=== PATIENT | male | born 1945 | race Caucasian/White ===

== ENCOUNTER → 2017-04-05 | Outpatient (CLI) | payer MEDICARE, OTHER ==
[2016-01-08 11:11] VITALS: BP 130/67
[~2017-04-05] MED LIST: ASPI-630 PO; ATOR20TA58 PO; BYSTOLIC10 MG PO; CHOL500016 PO; FERR159T3 PO; GLIM4TAB2 PO; INSU100V13 SQ; LIRA0.6P2 SQ; LISI-334 PO; LISI1TAB5 PO; LOSA1TAB17 PO; POTA99TA10 PO; TRAM50TA PO
[2017-04-05 09:37] LABS: BASO # 0.1 x10^3/uL (0.0-0.2); BASO % 1 % (0-3); EOS % 3 % (0-3); HEMATOCRIT 43.7 % (39.0-53.0); HEMOGLOBIN 15.3 g/dL (13.0-17.5); LYMPH # 1.2 x10^3/uL (1.0-4.8); LYMPH % 12 % (24-48); MEAN CORPUSCULAR HEMOGLOBIN 32 pg (25-35); MEAN CORPUSCULAR HGB CONC 35 g/dL (31-37); MEAN CORPUSCULAR VOLUME 91 fL (79-100); MONO % 11 % (0-9); NEUT % 74 % (31-73); PLATELET COUNT 248 x10^3/uL (140-400); RED BLOOD COUNT 4.79 x10^6/uL (4.30-5.70); WHITE BLOOD COUNT 10.1 x10^3/uL (4.0-11.0)
[2017-04-05 09:53] LABS: ALBUMIN 3.7 g/dL (3.4-5.0); CALCIUM 9.6 mg/dL (8.5-10.1); CREATININE 1.5 mg/dL (0.7-1.3)
[2017-04-05 09:55] LABS: INR 1.1 (0.8-1.1); PROTHROMBIN TIME PATIENT 13.3 SEC (11.7-14.0)
--- NOTE | 2017-04-05 14:59 | RAD ---
PA and lateral chest radiographs 04/05/2017 Clinical history: Preop evaluation prior to right knee surgery. PA and lateral digital radiographs of the chest were obtained. Comparison study is dated 01/05/2016. The cardiac silhouette is mildly enlarged. The thoracic aorta is mildly tortuous. No acute pulmonary infiltrate is seen. No pleural effusion or pneumothorax is noted. Degenerative changes are seen involving the thoracic spine. Impression: No acute abnormality is seen.
[2017-04-05 16:17] LABS: BILIRUBIN,URINE NEGATIVE (NEG); GLUCOSE,URINE 250 mg/dL (NEG); NITRITE,URINE NEGATIVE (NEG); PROTEIN,URINE NEGATIVE (NEG-TRACE); UROBILINOGEN,URINE 0.2 mg/dL (0.2 mg/dL)
[2017-04-05 16:27] LABS: BACTERIA,URINE 0 /HPF (0-FEW); RBC,URINE 0 /HPF (0-2); SQUAMOUS EPITHELIAL CELL,UR FEW /LPF
== END | disposition home or self-care (01) ==
LOC: SURGPAT 13:24
PROVIDERS: ATTEND Orthopaedic Surgery
DX: Z01.818 Encounter for other preprocedural examination (principal); I51.7 Cardiomegaly; Q25.46 Tortuous aortic arch; M47.894 Other spondylosis, thoracic region
CPT/HCPCS: 71020; 80048; 81001; 82040; 85027; 85610; 85651; 85730; 87641

== ENCOUNTER → 2017-04-22 | Outpatient (CLI) | payer MEDICARE, OTHER ==
[2016-01-08 11:11] VITALS: BP 130/67
[~2017-04-22] MED LIST changes: +REGADENOSON 0.4 MG/5 ML DISP.SYRIN. IV ONE
--- NOTE | 2017-04-22 10:36 | CARD ---
APPROVED REPORT EXAM: Two-dimensional and M-mode echocardiogram with Doppler and color Doppler. Other Information Quality : GoodHR: 71bpm INDICATION Pre-Op RISK FACTORS Hypertension Obesity Hyperlipidemia Diabetes 2D DIMENSIONS RVDd3.3 (2.9-3.5cm)Left Atrium(2D)4.1 (1.6-4.0cm) IVSd0.9 (0.7-1.1cm)Aortic Root(2D)3.2 (2.0-3.7cm) LVDd4.6 (3.9-5.9cm)LVOT Diameter2.4 (1.8-2.4cm) PWd0.8 (0.7-1.1cm)LVDs3.1 (2.5-4.0cm) FS (%) 34.1 %SV62.7 ml LVEF(%)63.0 (>50%) Aortic Valve AoV Peak Scooby.257.4cm/sAoV VTI56.4cm AO Peak GR.26.5mmHgLVOT Peak Scooby.87.5cm/s AO Mean GR.13mmHgAVA (VMAX)1.54cm2 AI P 1/2 Coxl238ui Mitral Valve MV E Dpfwdiqd78.7cm/sMV E Peak Gr.2mmHg MV DECEL [id number] A Ewofsqdp94.3cm/s MV E Mean Gr.1mmHgE/A Ratio1.0 MV A [id number] Pulmonary Valve PV Peak Emmmvtpj80.7cm/s Pulmonary Vein S1 Ttpnrtfx03.7cm/sD2 Riqcztpv84.5cm/s PVa [id number] LEFT VENTRICLE The left ventricle is normal size. There is normal left ventricular wall thickness. The left ventricu lar systolic function is normal and the ejection fraction is within normal range. The Ejection Fracti on is 65%. There is normal LV segmental wall motion. Tissue Doppler imaging reveals mild left ventric ular diastolic dysfunction. RIGHT VENTRICLE The right ventricle is normal size. There is normal right ventricular wall thickness. The right ventr icular systolic function is normal. ATRIA The left atrium is mildly dilated. The right atrium size is normal. The interatrial septum is intact with no evidence for an atrial septal defect or patent foramen ovale as noted on 2-D or Doppler imagi ng. AORTIC VALVE The aortic valve is moderately sclerotic. Not well visualized. Decreased leaflet motion. Doppler and Color Flow revealed mild aortic regurgitation. There is mild valvular aortic stenosis by calculated a ortic valve area is 1.6 cm2 with maximum pressure gradient of 27 mmHg and mean pressure gradient of 1 4 mmHg. Visually, there appears to be moderate aortic stenosis due to significant valve calcification . MITRAL VALVE Mitral annular calcification is mild. The mitral valve leaflets are thickened. There is no evidence o f mitral valve prolapse. There is no mitral valve stenosis. Doppler and Color Flow revealed trace sharyn ral regurgitation. TRICUSPID VALVE Doppler and Color Flow revealed no tricuspid valve regurgitation noted. Unable to determine pulmonary artery pressure at exam time. PULMONIC VALVE The pulmonary valve is not well visualized but appears to open adequately. Doppler and Color Flow rev ealed no pulmonic valvular regurgitation. There is no pulmonic valvular stenosis by spectral Doppler. GREAT VESSELS The aortic root is normal in size. The ascending aorta is normal in size. The IVC is normal in size a nd collapses >50% with inspiration. PERICARDIAL EFFUSION There is no evidence of significant pericardial effusion. Critical Notification Critical Value: No <Conclusion> The left ventricular systolic function is normal and the ejection fraction is within normal range. Th e Ejection Fraction is 65%. There is normal LV segmental wall motion. There is mild valvular aortic stenosis by calculated aortic valve area is 1.6 cm2 with maximum pressu re gradient of 27 mmHg and mean pressure gradient of 14 mmHg. Visually, there appears to be moderate aortic stenosis due to significant valve calcification.
--- NOTE | 2017-04-23 11:07 | RAD ---
APPROVED REPORT Test Type: Pharmacological Stress Nurse/Tech: Swetha Miller R.N. Test Indications: pre op clearance Cardiac History: Hypertension, Diabetes Medications: See Electronic Medical Record Medical History: See Electronic Medical Record Resting ECG: NSR with PAC's Resting Heart Rate: 76 bpm Resting Blood Pressure: 121/70mmHg Pretest Chest Pain: No chest pain Nurse/Tech Notes S1S2, lungs sound clear Consent: The procedure was explained to the patient in lay terms. Informed consent was witnessed. Joel eout was entered into [employer]. History and Stress Test performed by Swetha Miller R.N. Pharm. Details Pharmacologic stress testing was performed using 0.4mg per 5ml of regadenoson given intravenously ove r 7-10 seconds. Stress Symptoms No chest pain or symptoms. POST EXERCISE Reason for Termination: Infusion complete Max HR: 105 bpm Max Blood Pressure: 155/77mmHg Blood Pressure response to exercise: Normal blood pressure response during stress. Heart Rate response to exercise: wni Chest Pain: No. Arrhythmia: Yes. cont. to have PAC's ST Change: No. INTERPRETATION Stress EKG Conclusion: No acute findings to suggest ischemia. Imaging Protocol IMAGE PROTOCOL: Rest Tc-99m/stress Tc-99m 2 days Rest: Stress: Viability: Radiopharm.Tc99m BzrqtmifuOh35i Sestamibi Dose32.1mCi 34.5mCi Duration 20min. 15min. Img Date 04/22/2017 04/23/2017 Inj-Img Wlxg15amj. 60min. Rest Admin Site:IV - Right AntecubitalAdministrator:RT Serene (R)(N) Stress Admin Site: IV - Right AntecubitalAdministrator: RT Serene (R)(N) STRESS DATA End Diast. Vol.100.0mlAv. Heart Rate90.0bpm End Syst. Vol.26.0mlCO Index BSA0.0L/min Myocardial Qgda346.0gEject. Iuxqhqiz91.0% Stress Rates Pk. Fill Rate2.81EDV/secLVtime Pk. Fill 87.81msec Pk. Empty Rate4.74ESV/secLVtime Pk. Jobbu070.63msec 09/01 Pk. Fill1.89EDV/sec Stress Scores Regional WT0.00Summed WT4.00 Regional WM0.00Summed WM0.00 The rest and stress images show normal perfusion, normal contraction and thickening. LV Perf. Quant 17 Seg. SSS0.00 17 Seg. SRS3.00 17 Seg. SDS0.00 Stress Defect Extent (% LAD)0.00Rest Defect Extent (% LAD)7.50Rev. Defect Extent (% LAD)0.00 Stress Defect Extent (% LCX) 0.00Rest Defect Extent (% LCX)12.50Rev. Defect Extent (% LCX)0.00 Stress Defect Extent (% RCA)0.00Rest Defect Extent (% RCA)0.00Rev. Defect Extent (% RCA)0.00 Stress Defect Extent (% MICHELLE)0.00Rest Defect Extent (% MICHELLE)4.80Rev. Defect Extent (% MICHELLE)0.00 Other Information Quality:Good Risk Assessment: Low Risk Conclusion 1. No evidence of EKG changes with stress testing. 2. Normal perfusion at stress/rest. 3. Low risk study. 4. EF > 60%.
== END | disposition home or self-care (01) ==
LOC: ECHO 08:51
PROVIDERS: ATTEND Internal Medicine Cardiovascular Disease
DX: Z01.818 Encounter for other preprocedural examination (principal); I35.0 Nonrheumatic aortic (valve) stenosis; I10 Essential (primary) hypertension; E11.9 Type 2 diabetes mellitus without complications
CPT/HCPCS: 78452; 93306; 96374; 96375; A9500; 93017; 96376; J2785

== ENCOUNTER → 2018-02-17 | Outpatient (CLI) | payer MEDICARE, OTHER | END | disposition home or self-care (01) | LOC: KCIC MRI 11:56 | DX: M48.061 Spinal stenosis, lumbar region without neurogenic claudication (principal); M51.37 Other intervertebral disc degeneration, lumbosacral region; M43.16 Spondylolisthesis, lumbar region; I10 Essential (primary) hypertension; E11.9 Type 2 diabetes mellitus without complications; Z79.4 Long term (current) use of insulin | CPT/HCPCS: 72148 ==

== ENCOUNTER → 2018-05-23 | Outpatient (CLI) | payer MEDICARE, OTHER ==
[2016-01-08 11:11] VITALS: BP 130/67
[~2018-05-23] MED LIST changes: +ASPI1TAB88 PO; +FURO20TA3 PO; +IOHEXOL 180 MG/ML 10 ML VIAL. ONE; +LIDOCAINE 2% PF 2ML VIAL. ONE; -LOSA1TAB17 PO; +LOSA1TAB22 PO; -REGADENOSON 0.4 MG/5 ML DISP.SYRIN. IV ONE; +TAMS0.4C97 PO; +methylPREDNISolone ACETATE 40 MG/ML VIAL. ONE; +methylPREDNISolone ACETATE 80 MG/ML VIAL. ONE
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
== END | disposition home or self-care (01) ==
LOC: PNCL 09:58
PROVIDERS: ATTEND Anesthesiology
DX: M51.16 Intervertebral disc disorders with radiculopathy, lumbar region (principal); I10 Essential (primary) hypertension; E11.9 Type 2 diabetes mellitus without complications; F17.210 Nicotine dependence, cigarettes, uncomplicated; I49.9 Cardiac arrhythmia, unspecified; E66.9 Obesity, unspecified; M43.16 Spondylolisthesis, lumbar region; M48.061 Spinal stenosis, lumbar region without neurogenic claudication; M19.90 Unspecified osteoarthritis, unspecified site; Z90.49 Acquired absence of other specified parts of digestive tract; Z79.899 Other long term (current) drug therapy; Z98.890 Other specified postprocedural states; Z79.4 Long term (current) use of insulin; Z79.82 Long term (current) use of aspirin
CPT/HCPCS: 62323; J1030; J1040; J2001; Q9965

== ENCOUNTER → 2018-06-07 | Outpatient (CLI) | payer MEDICARE, OTHER ==
[2016-01-08 11:11] VITALS: BP 130/67
--- NOTE | 2018-06-07 14:57 | PAIN ---
DATE OF SERVICE: 06/07/2018 DIAGNOSES: Lumbar radiculopathy with lumbar degenerative disk disease, lumbar spinal stenosis. SUMMARY: The patient is a 72-year-old male who returns for followup status post lumbar epidural steroid injection x 1. The patient reports near 100% relief for the first week and a half and the pain began to return, but only very minimally in the low back and bilateral thighs. The patient reports mostly in the anterior aspect of the thighs, some in the back as well. He has been walking with much greater ease and comfort, walking greater distances, able to do household activities with greater ease and comfort, traveling better without pain. The patient reports the pain in his back is completely gone. He is beginning to shuffle his feet again, he has noticed over the past 4 to 5 days, still using his cane in his right hand, but reports that the pain is only a 5 on a scale of 10 at its worst, 3 on average, 1 at its least and is a 1 today. The patient reports it is an aching pain in the legs themselves, but again the back pain is completely resolved. The patient reports no new motor or sensory deficits, no new bowel or bladder incontinence or other complaints. PHYSICAL EXAMINATION: VITAL SIGNS: The patient's blood pressure 135/82, pulse 79, respirations 18, temperature 98.3 degrees Fahrenheit, height is 5 feet 10 inches, weight is 212 pounds. GENERAL: The patient is awake, alert, oriented, appropriate, very pleasant demeanor. HEENT: Head shows normocephalic, atraumatic. Extraocular movements are intact, symmetrical. Oral cavity: Mucous membranes moist and pink. Dentition is intact. NECK: Shows anterior throat supple without palpable lymphadenopathy noted. Swallow reflex symmetrical. CHEST: Shows normal with inspection. Breath sounds clear to auscultation bilaterally. HEART: Shows S1, S2 clear. No murmurs auscultated. ABDOMEN: Soft, nontender, nondistended. No palpable organomegaly is noted. No rebound or guarding demonstrated. BACK: Shows spine grossly in the midline. Normal appearing thoracic kyphosis. Some slight flattening of lumbar lordotic curvature. Lumbar paraspinous muscle shows symmetrical on inspection. On palpation shows some moderate tenderness only diffusely without atrophy, hypertrophy without trigger points. Good rotational motion is maintained both laterally greater than 10 degrees right and left as well as extension greater than 10 degrees, forward flexion 45 degrees without pain reported. EXTREMITIES: Lower extremities show deep tendon reflexes at 1+ in the patellar and tendo calcaneus tendons. Motor exam is approximately 4 on a scale 5, but equal and symmetrical dorsiflexion, extension, quadriceps and hamstring flexion. Peripheral pulses are 1+ posterior tibial. No peripheral edema is noted bilaterally. Options were discussed with the patient. The patient's old chart was reviewed as his current medication regimen updated. Current review of systems updated today as well and we will proceed with a second in the series of lumbar epidural steroid injection today with fluoroscopic guidance. Risks were again discussed including, but not limited to bleeding, infection, possibility of epidural hematoma, subsequent neurological compromise, dural puncture, headaches, spinal cord and/or nerve damage, side effects of steroid medication and poor results regarding pain control. The patient understands and wished to proceed. The patient to return to clinic in approximately 2 weeks for followup, was counseled as to return appointment, activity level and side effects to be aware of. DIAGNOSES: Lumbar radiculopathy with lumbar degenerative disk disease, lumbar spinal stenosis. PROCEDURE: Lumbar epidural steroid injection, translaminar approach at L3-L4 level using C-arm fluoroscopic guidance under sterile prep and drape using local anesthetic. MEDICATION INJECTED: A total of 120 mg Depo-Medrol plus 10 mL of preservative-free normal saline and 2 mL of Isovue for contrast. CONDITION AT DISCHARGE: Stable. The patient tolerated procedure well, had no complications. CELSO HUMMEL MD DR: JUANI/lou JOB#: [id number] / [id number]
== END | disposition home or self-care (01) ==
LOC: PNCL 10:05
PROVIDERS: ATTEND Anesthesiology
DX: M51.16 Intervertebral disc disorders with radiculopathy, lumbar region (principal); M48.061 Spinal stenosis, lumbar region without neurogenic claudication
CPT/HCPCS: 62323; J1030; J1040; J2001; Q9965

== ENCOUNTER → 2018-06-22 | Outpatient (CLI) | payer MEDICARE, OTHER ==
[2016-01-08 11:11] VITALS: BP 130/67
[~2018-06-22] MED LIST changes: +LIDOCAINE 1% PF 2 ML VIAL. ONE; -LIDOCAINE 2% PF 2ML VIAL. ONE; +LOSA100T7 PO; +TROS20TA2 PO
--- NOTE | 2018-06-23 05:03 | PAIN ---
DATE OF SERVICE: 06/22/2018 DIAGNOSES: Lumbar radiculopathy with lumbar degenerative disk disease, lumbar spinal stenosis. HISTORY OF PRESENT ILLNESS: The patient is a 72-year-old male who returns for followup status post lumbar epidural steroid injection x 2. The patient reports about 75% improvement overall with the pain and weakness in his low back; however, his legs are still weak with not normal functioning as he describes it. The patient reports he has been trying to be active as much as he can, but he still has feet shuffling. He has loss of balance when he is walking forward, still using his cane, trips over very, very small items. He is unable to lift his feet off the ground very well. On walking, he has been tripping quite a bit, but not fallen. The patient reports the pain is much better, but the balance and mobility is still significantly impaired. The patient reports the pain is a 1 on a scale of 10 at its worse, 0 on average, 0 at its least, and is a 0 today. The patient reports still weakness in the lower extremities, right side greater than left with some aching pain across the low back. Again, pain is significantly decreased, but balance is still significantly impaired. PHYSICAL EXAMINATION: VITAL SIGNS: The patient's blood pressure 135/95, pulse 83, respirations 16, temperature 97.7 degrees Fahrenheit, height is 5 feet 10 inches, weight is 261 pounds. GENERAL: The patient is awake, alert, oriented, appropriate, very pleasant demeanor. HEENT: Shows normocephalic, atraumatic. Extraocular movements are intact and symmetrical. Oral cavity: Mucous membranes moist and pink. Dentition is intact. NECK: Anterior throat supple without palpable lymphadenopathy noted. Swallow reflex is symmetrical. CHEST: Shows normal on inspection. Breath sounds are clear to auscultation bilaterally. HEART: Shows S1, S2 clear. No murmurs auscultated. ABDOMEN: Obese, soft, nontender, nondistended. No palpable organomegaly is noted. No rebound or guarding demonstrated. BACK: Shows spine grossly in the midline. Lumbar paraspinous muscle shows symmetrical on inspection. On palpation shows some moderate tenderness, but only diffusely bilaterally and only very mildly without radiation. The patient shows good rotational motion of the lumbar spine both laterally as well as extension and flexion without difficulty or pain reported. No tenderness over the sacrum or sacroiliac regions. EXTREMITIES: Lower extremities show deep tendon reflexes 1+ in the patellar and tendo calcaneus tendons are equal. Motor exam is approximately 4 on a scale of 5, but equal and symmetrical with dorsiflexion, extension, quadriceps and hamstring flexion. Peripheral pulses are 1+ posterior tibia. No peripheral edema is noted bilaterally. Options were discussed with the patient. The patient's old chart was reviewed as is his current medication regimen updated. Current review of systems is updated today as well. We will proceed with a third lumbar epidural steroid injection today with fluoroscopic guidance. Risks were again discussed including, but not limited to bleeding, infection, possibility of epidural hematoma, subsequent neurological compromise, dural puncture, headaches, spinal cord and/or nerve damage, side effects of steroid medication and poor results regarding pain control. The patient understands and wished to proceed. The patient will return to the clinic in approximately 2 weeks for followup, was counseled on return appointment, activity level and side effects to be aware of. The patient will also follow up with his neurosurgeon regarding any potential surgical alternative. DIAGNOSIS: Lumbar radiculopathy with lumbar degenerative disk disease, lumbar spinal stenosis. PROCEDURE: Lumbar epidural steroid injection, translaminar approach L3-L4 level using C-arm fluoroscopic guidance under sterile prep and drape using local anesthetic. MEDICATION INJECTED: A total of 120 mg Depo-Medrol plus 10 mL of preservative-free normal saline and 2 mL of Isovue for contrast. CONDITION AT DISCHARGE: Stable. The patient tolerated the procedure well, had no complications. CELSO HUMMEL MD DR: JUANI/lou JOB#: [id number] / [id number]
== END | disposition home or self-care (01) ==
LOC: PNCL 09:42
PROVIDERS: ATTEND Anesthesiology
DX: M51.16 Intervertebral disc disorders with radiculopathy, lumbar region (principal); M48.061 Spinal stenosis, lumbar region without neurogenic claudication; Z91.048 Other nonmedicinal substance allergy status
CPT/HCPCS: 62323; J1030; J1040; Q9965

== ENCOUNTER → 2018-07-06 | Outpatient (CLI) | payer MEDICARE, OTHER ==
[2016-01-08 11:11] VITALS: BP 130/67
[~2018-07-06] MED LIST changes: -IOHEXOL 180 MG/ML 10 ML VIAL. ONE; -LIDOCAINE 1% PF 2 ML VIAL. ONE; -methylPREDNISolone ACETATE 40 MG/ML VIAL. ONE; -methylPREDNISolone ACETATE 80 MG/ML VIAL. ONE
--- NOTE | 2018-07-06 13:14 | KCIC ---
MRI of the cervical spine without contrast 07/06/2018 CLINICAL HISTORY: Neck pain. History of cervical spinal canal stenosis. TECHNIQUE: Unenhanced T1-weighted, T2-weighted and inversion recovery sagittal and gradient echo and T2-weighted axial images of the cervical spine were obtained. FINDINGS: The patient has a very large body habitus and the anterior neck coil was unable to be a few utilized for this examination. No previous studies are available for comparison. Mild lateral curvature of the cervical spine is seen convex to the left. Degenerative signal changes are seen involving all the disks of the cervical spine. Degenerative signal changes are seen within the marrow surrounding these discs. Loss of height of the C5-6 and C6-7 discs is noted. No area of abnormal signal intensity is seen involving the cervical spinal cord. At the C2-3 disc space there is a minimal generalized disc bulge. Superimposed on this disc bulge is a focal central disc protrusion. This measures 2 mm in AP diameter. Degenerative changes are seen involving the uncovertebral and facet joints bilaterally. These findings do not result in significant central spinal canal or neural foraminal stenosis. At the C3-4 disc space there is a mild generalized disc bulge. Degenerative changes are seen involving the uncovertebral and facet joints bilaterally. These findings do not result in significant central spinal canal or neural foraminal stenosis. At the C4-5 disc space there is a mild generalized disc bulge. Superimposed on this disc bulge is a focal central disc protrusion. This measures 3 mm in AP diameter. Degenerative changes are seen involving the uncovertebral and facet joints bilaterally. These findings efface the anterior and posterior CSF resulting in mild central spinal canal stenosis without evidence of cord impingement. Mild bilateral neural foraminal stenosis is seen. At the C5-6 disc space there is a mild to moderate generalized disc bulge. Degenerative changes are seen involving the uncovertebral and facet joints, left greater than right. These findings efface the anterior CSF without resulting in significant central spinal canal stenosis. Mild to moderate left greater than right neural foraminal stenosis is seen. At the C6-7 disc space there is a moderate generalized disc bulge. Degenerative changes are seen involving the uncovertebral and facet joints, right greater than left. These findings efface the anterior and posterior CSF resulting in mild central spinal canal stenosis without evidence of cord impingement. Mild to moderate right greater than left neural foraminal stenosis is seen. At the C7-T1 disc space there is a mild generalized disc bulge. This is eccentric to the right. Degenerative changes are seen involving the facet joints bilaterally. These findings do not result in significant central spinal canal stenosis. Mild right neural foraminal stenosis is seen. The left neural foramen is patent. IMPRESSION: Degenerative changes are seen throughout the cervical spine. These findings result in mild central spinal canal stenosis at C4-5 and C6-7 without evidence of cord impingement. Mild bilateral neural foraminal stenosis is seen at C4-5. Mild to moderate left greater than right neural foraminal stenosis is seen at C5-6. Mild to moderate right greater than left neural foraminal stenosis is seen at C6-7. Electronically signed by: Kimo Ross MD (07/06/2018 1:10 PM) [id number]
== END | disposition home or self-care (01) ==
LOC: KCIC MRI 08:34
PROVIDERS: ATTEND Neurological Surgery
DX: M48.02 Spinal stenosis, cervical region (principal); M47.892 Other spondylosis, cervical region
CPT/HCPCS: 72141

== ENCOUNTER → 2018-07-13 | Outpatient (CLI) | payer MEDICARE, OTHER ==
[2016-01-08 11:11] VITALS: BP 130/67
[~2018-07-13] MED LIST changes: +DOCU-109 PO; +HYDR-3164 PO
--- NOTE | 2018-07-13 13:19 | EKG ---
[facility] [address] [place] [address] Test Date: 2018-07-13 Test Time: 13:27:01 Pat Name: SALUD WU Department: Room: Gender: M Cds Sales Advisor: GATITO : 1945 Requested By: ELIAZAR BELLO Order Number: [id number] Reading MD: Mahendra Woods MD Measurements Intervals Marcella Rate: 91 P: 30 NH: 184 QRS: -16 QRSD: 82 T: 4 QT: 336 QTc: 415 Interpretive Statements SINUS RHYTHM ATRIAL PREMATURE COMPLEX(ES) Electronically Signed On 07-14-2018 10:44:07 METALIZING SUPERVISOR by Mahendra Woods MD
[2018-07-13 13:24] LABS: BASO # 0.1 x10^3/uL (0.0-0.2); BASO % 1 % (0-3); EOS # 0.1 x10^3/uL (0.0-0.7); EOS % 2 % (0-3); HEMATOCRIT 40.4 % (39.0-53.0); HEMOGLOBIN 14.1 g/dL (13.0-17.5); LYMPH % 11 % (24-48); MEAN CORPUSCULAR HEMOGLOBIN 32 pg (25-35); MEAN CORPUSCULAR HGB CONC 35 g/dL (31-37); MEAN CORPUSCULAR VOLUME 91 fL (79-100); MONO # 0.8 x10^3/uL (0.0-1.1); MONO % 9 % (0-9); NEUT # 7.4 x10^3uL (1.8-7.7); NEUT % 78 % (31-73); PLATELET COUNT 220 x10^3/uL (140-400); RED BLOOD COUNT 4.45 x10^6/uL (4.30-5.70); WHITE BLOOD COUNT 9.5 x10^3/uL (4.0-11.0)
[2018-07-13 14:00] LABS: ALBUMIN/GLOBULIN RATIO 0.7 (1.0-1.7); CALCIUM 9.7 mg/dL (8.5-10.1); CREATININE 1.2 mg/dL (0.7-1.3); GFR 59.3; POTASSIUM 3.9 mmol/L (3.5-5.1); TOTAL BILIRUBIN 0.6 mg/dL (0.2-1.0); TOTAL PROTEIN 7.2 g/dL (6.4-8.2)
[2018-07-14 01:12] LABS: HEMOGLOBIN A1C 8.3 % (4.8-5.6)
== END | disposition home or self-care (01) ==
LOC: SURGPAT 12:19
PROVIDERS: ATTEND Neurological Surgery
DX: Z01.818 Encounter for other preprocedural examination (principal); M48.061 Spinal stenosis, lumbar region without neurogenic claudication
CPT/HCPCS: 36415; 80053; 83036; 85025; 87641; 93005

== ENCOUNTER 2018-07-18 07:10 | Day surgery (SDC) | payer MEDICARE, OTHER ==
--- NOTE | 2018-07-15 13:11 | PREOP HP ---
DATE OF SERVICE: 07/18/2018. HISTORY OF PRESENT ILLNESS: The patient is a pleasant 72-year-old who has problems with low back pain and bilateral leg pain. He does feel as though there is weakness in both of his legs. He has had difficulty with falling in the past. He rates his pain as a 6/10 today. Standing and activities increase his pain; sitting and lying down help. Epidural steroid injections were done and the first helped significantly for about 2 weeks and the second and third did not help significantly. He uses a cane for ambulation. PAST MEDICAL HISTORY: Arthritis, hypertension, kidney problems, tonsillitis, tumors or growths and diabetes. PAST SURGICAL HISTORY: Cholecystectomy in 2017, right knee ACL repair in 2005, osteoma left elbow and tonsillectomy. FAMILY HISTORY No family history documented. SOCIAL HISTORY: Retired from sales. . Denies substance abuse. Former smoker. Drinks 1-2 times per year. Drinks tea and soda. ALLERGIES: No known drug allergies. CURRENT MEDICATIONS: Victoza, Levemir, Bystolic, atorvastatin, losartan, furosemide, glimepiride, iron, potassium, vitamin D3 and a low-dose Alexis aspirin as well as tramadol. REVIEW OF SYSTEMS: A 12-point review of systems was obtained and is noncontributory, except for that mentioned above. PHYSICAL EXAMINATION: NEUROSURGERY EXAMINATION: GENERAL APPEARANCE: Alert, pleasant, no acute distress. HEAD: Normocephalic and atraumatic. SKIN: Warm and dry. MUSCULOSKELETAL: Lumbar paraspinal muscle bulk is normal, restricted range of motion of the lumbar spine, wazy-en-nxuchnfd tenderness of the lower lumbar spine with palpation and normal range of motion of the lower extremities bilaterally. EXTREMITIES: No clubbing, cyanosis or edema. NEUROLOGIC: Alert and oriented x 3, normal recent and remote memory. Strength 5/5 in bilateral lower extremities. Sensory was intact to light touch in the lower extremities bilaterally, except for decrease involving ankles and feet to light touch bilaterally. Reflexes are absent in the knees, 1+ symmetric in the ankles. Negative straight leg raising bilaterally, ambulates with a cane. IMAGING: I reviewed a lumbar MRI scan from 01/2018. On that study, there are ttovwasy-pa-xvwkry degenerative changes throughout the lower and mid lumbar spine. At L3-L4, there is moderately severe right greater than left ligamentum flavum thickening and buckling. There were also moderately hypertrophic facets. He has severe spinal stenosis present at this level. Additionally, I reviewed a cervical MRI scan where I found degenerative changes and disc bulging at multiple levels. I do not, however, see a surgical problem. ASSESSMENT: Spinal stenosis, lumbar region with neurogenic claudication. PLAN: The patient has been having difficulty with leg pain and weakness as well as low back pain. On imaging studies, there was severe spinal stenosis at L3-L4. I do not think this could be contributing to his pain. My recommendation is that he undergo microdecompression surgery bilaterally at this level to fully decompress the dura and nerve roots at L3-L4. I did discuss this with him in detail. He would like to go ahead. I did outline the expected postoperative course as well as the risks. We will make the arrangements. ELIAZAR BELLO MD DR: RADHA/lou JOB#: [id number] / [id number] CHIQUIS
[~2018-07-18] VITALS: Ht 179.1 cm; Wt 118.3 kg
[~2018-07-18 07:10] MED LIST changes: +BACITRACIN 50,000 UNIT in IV NORMAL SALINE 1000ML BAG 1,000 ML IRR ONE; +BUPIVAC MPF-EPI 0.5%-1:200000 30 ML VIAL. ONE; -DOCU-109 PO; +GELATIN SPONGE SIZE 100. ONE; -HYDR-3164 PO; +HYDROmorphone 2 MG/ML VIAL IV PRN; +KETOROLAC 60 MG/2 ML INJ FOR OR. ONE; +LIDOCAINE 1% PF 2 ML VIAL. ID PRN; +MORPHINE SULFATE 2 MG/ML VIAL. IV PRN; +ONDANSETRON PF 4 MG/2 ML VIAL. IV PRN; +PROCHLORPERAZINE 10 MG/2 ML VIAL. IV PRN; +THROMBIN TOPICAL 20,000 UNIT SPRAY.SYRN KIT TP ONE; +fentaNYL PF VIAL 100 MCG/2 ML VIAL IV PRN
[2018-07-18] MEDS ORDERED: PROPOFOL 20 ML IV ONE (07:24)
[2018-07-18] MEDS ORDERED: ROCURONIUM 50 MG/5 ML VIAL. ONE (07:24)
[2018-07-18] MEDS ORDERED: LIDOCAINE 1% PF 5 ML VIAL. ONE (07:24)
[2018-07-18] MEDS ORDERED: fentaNYL PF VIAL 100 MCG/2 ML VIAL ONE (07:24)
[2018-07-18] MEDS ORDERED: SUCCINYLCHOLINE 200 MG/10 ML VIAL. ONE (07:24)
[2018-07-18] MEDS ORDERED: PROPOFOL 50 ML IV ONE ×2 (07:24→10:18)
[2018-07-18] MEDS ORDERED: REMIFENTANIL 2 MG VIAL. IV ONE (07:24)
[2018-07-18] MEDS ORDERED: 0.9 % SODIUM CHLORIDE 20 ML VIAL. IJ ONE (07:25)
[2018-07-18] MEDS: IV RINGERS,LACTATED 1000ML 1,000 ML IV SCH ×2 (07:50→12:09)
[2018-07-18] MEDS ORDERED: DEXAMETHASONE SOD PHOS 20 MG/5 ML VIAL. ONE (09:14)
[2018-07-18] MEDS ORDERED: DESFLURANE > 120 MINUTES IH ONE (09:14)
[2018-07-18] MEDS ORDERED: PHENYLEPHRINE in 0.9% NACL PF 1 MG/10 ML SYRINGE. IV ONE (09:14)
[2018-07-18] MEDS ORDERED: PHENYLEPHRINE 10 MG/ML VIAL. ONE (09:31)
[2018-07-18] MEDS ORDERED: ePHEDrine PF IN SALINE 50 MG/5 ML DISP.SYRIN IV ONE (09:35)
[2018-07-18] MEDS ORDERED: ONDANSETRON PF 4 MG/2 ML VIAL. ONE (10:43)
[2018-07-18] MEDS ORDERED: GELATIN SPONGE SIZE 100. ONE (11:23)
--- NOTE | 2018-07-18 11:49 | DISCH ---
DISCHARGE INSTRUCTIONS Condition on Discharge Condition on Discharge: Stable Activity After Discharge Activity Instructions for Disc: Activity as tolerated, Avoid exertion Other activity instructions: no driving for a week Bathing Instructions: Shower-keep dressing dry Lifting Instructions after Dis: No heavy lifting, No pulling or pushing, Do not lift >10 pounds Diet after Discharge Diet after Discharge: GI Soft, Diabetic No Calorie Level Additional Diet Restrictions: resume home diet Wound Incision Care Wound/Incision Care: Ice to area for comfort, Other, see below Other wound/incision instructi: may remove dressing in 48 hrs if dry then may shower, no soaking Contacting the [facility] after DC Call your doctor for: Concerns you may have Follow-Up Follow up with: Dr. Bello's nurse in 2 weeks [phone] Treatment/Equipment after DC Adaptive Equipment Issued: None ELIAZAR BELLO MD Jul 18, 2018 11:49
[2018-07-18] MEDS ORDERED: DOCU-109 PO (11:53)
[2018-07-18] MEDS ORDERED: HYDR-3164 PO (11:53)
[2018-07-18 13:25] VITALS: BP 150/82
--- NOTE | 2018-07-18 18:27 | OP ---
DATE OF SURGERY: 07/18/2018 PREOPERATIVE DIAGNOSIS: Lumbar spinal stenosis L3-L4 with neurogenic claudication. POSTOPERATIVE DIAGNOSIS: Lumbar spinal stenosis L3-L4 with neurogenic claudication. OPERATION PERFORMED: Bilateral hemilaminotomies with decompression of dura and nerve root, L3-L4. The operation was done with EMG monitoring, SSEP monitoring, fluoroscopy and microscopic dissection. SURGEON: Goran Bello M.D. PATTERN GRADER CUTTER: KRISTAN Otoole assisted with the surgery. She assisted with the exposure, the bilateral decompression as well as the closure. OPERATIVE INDICATIONS: The patient is a pleasant 72-year-old man who developed intractable back and bilateral leg pain. He did improve slightly with epidural steroid injections, but continued to have symptoms and difficulty with his ambulation. On imaging studies, he had the above-mentioned findings with fairly severe stenosis at L3-L4 and I recommended lumbar microdecompressive surgery at that level. I spoke with him about the surgery and the risks, the technique and both he and his wished for me to go ahead. DESCRIPTION OF PROCEDURE: Following general endotracheal anesthesia, the patient was positioned prone on the Ulysses frame. His lumbar region was prepped and draped in standard fashion. MELINA hose and AV impulse boots were applied for DVT prophylaxis. The microscope was draped. Fluoroscopy was draped and brought into the field. Monitoring was established. Ancef 2 grams was given less than 1 hour prior to initiation of the surgery. Using fluoroscopic guidance, a midline incision was made extending from upper L3 to inferior L4. I dissected down through skin, subcutaneous tissue, reflected the paraspinal muscles and placed a Koehler retractor. Beginning on the left side, I brought in the microscope. I trimmed away part of the spinous process and then using the high-speed air drill I burred down a very generous hemilaminotomy. There was considerable scarring. I peeled away the thickened ligamentum flavum, worked from medial to laterally, undercut medially but also worked quite far laterally, performing a partial foraminotomy and fully decompressed the entire region. The disc was flat. There were a few epidural veins, which I coagulated, but as I worked, the region became very well decompressed. I then went to the right side in a similar fashion, performed the identical operation. Again, there was significant compression which was completely relieved with the surgery. Following this, then I explored carefully. I did use small amounts of bone wax as well as a bipolar cautery. Hemostasis was excellent. I irrigated copiously. I closed the wound in layers with absorbable suture. The skin was closed with 4 -0 subcuticular stitch. The operation went very well and the patient was awakened uneventfully, taken to recovery room in excellent condition. I was quite pleased with the surgery. GORAN BELLO MD DR: RADHA/lou JOB#: [id number] / [id number] CHIQUIS
--- NOTE | 2018-07-19 16:08 | PATHOLOGY ---
[facility] Accession Number: [id number] . 01 Material submitted: . LUMBAR DECOMPRESSION . 01 Clinical history: . Lumbar stenosis . 02 Diagnosis: Segments of fibrocartilaginous and fibroadipose tissue and bone, lumbar decompression: - Degenerative changes of fibrocartilaginous tissue. (JPM:anusha; 07/19/2018) QMS/07/19/2018 . 02 Comment: There is no evidence of an acute inflammatory process or malignancy. . 02 Electronically signed: . Lasha Koehler MD, Pathologist NPI- [id number] . 01 Gross description: . The specimen is received in formalin, labeled "Alex Davis, lumbar decompression" and consists of multiple fragments of fibrous pink-layne tissue and bone measuring 5.0 x 3.9 x 1.2 cm in aggregate. A associate sales representative portion is submitted in A1 following decalcification. (SDY; 07/18/2018) SYU/SYU . 02 Pathologist provided ICD-10: M51.36 . 02 CPT . 238312, 352530 Specimen Comment: A courtesy copy of this report has been sent to Specimen Comment: [phone], . Specimen Comment: Report sent to / DR LIRIANO Specimen Comment: A duplicate report has been generated due to demographic updates. Performed at: 01 [facility] [address], [place] [id number] MD Contreras Bone MD Phone: [phone] Performed at: 02 [facility] [address] [place], [place] [id number] MD Lasha Koehler MD Phone: [phone]
== END 2018-07-18 14:30 | disposition home or self-care (01) ==
LOC: SURG 07:10
PROVIDERS: ATTEND Neurological Surgery
DX: M48.062 Spinal stenosis, lumbar region with neurogenic claudication (principal); I10 Essential (primary) hypertension; E11.9 Type 2 diabetes mellitus without complications; M19.90 Unspecified osteoarthritis, unspecified site; Z90.49 Acquired absence of other specified parts of digestive tract; Z98.890 Other specified postprocedural states; Z87.891 Personal history of nicotine dependence; Z72.89 Other problems related to lifestyle; Z79.84 Long term (current) use of oral hypoglycemic drugs; Z79.899 Other long term (current) drug therapy; Z79.82 Long term (current) use of aspirin; Z91.048 Other nonmedicinal substance allergy status
CPT/HCPCS: 63047; 76000; 82962; 88304; 88311; 97116; 97162; 97530; A7015; G8978; G8979; G8980; J0330; J0690; J1100; J1885; J2370; J2405; J2704; J3010; J3490; J7030; J7120

== ENCOUNTER → 2018-09-01 | Outpatient (CLI) | payer MEDICARE, OTHER ==
[~2018-09-01] MED LIST changes: -BACITRACIN 50,000 UNIT in IV NORMAL SALINE 1000ML BAG 1,000 ML IRR ONE; -BUPIVAC MPF-EPI 0.5%-1:200000 30 ML VIAL. ONE; +DOCU-109 PO; -GELATIN SPONGE SIZE 100. ONE; +HYDR-3164 PO; -HYDROmorphone 2 MG/ML VIAL IV PRN; -KETOROLAC 60 MG/2 ML INJ FOR OR. ONE; -LIDOCAINE 1% PF 2 ML VIAL. ID PRN; +LOSA100T14 PO; -LOSA100T7 PO; -MORPHINE SULFATE 2 MG/ML VIAL. IV PRN; -ONDANSETRON PF 4 MG/2 ML VIAL. IV PRN; -PROCHLORPERAZINE 10 MG/2 ML VIAL. IV PRN; -THROMBIN TOPICAL 20,000 UNIT SPRAY.SYRN KIT TP ONE; -fentaNYL PF VIAL 100 MCG/2 ML VIAL IV PRN
--- NOTE | 2018-09-01 10:15 | CARD ---
MR#: [id number] Date of Study: 09/01/2018 Ordering Physician: KIAH JOHNSON, Referring Physician: KIAH JOHNSON Tech: India Hannon RDCS APPROVED REPORT EXAM: Two-dimensional and M-mode echocardiogram with Doppler and color Doppler. Other Information Quality : GoodHR: 79bpm Rhythm : NSR INDICATION Pre-Op 2D DIMENSIONS RVDd3.7 (2.9-3.5cm)Left Atrium(2D)4.4 (1.6-4.0cm) IVSd1.3 (0.7-1.1cm)Aortic Root(2D)3.5 (2.0-3.7cm) LVDd4.1 (3.9-5.9cm)LVOT Diameter2.1 (1.8-2.4cm) PWd1.2 (0.7-1.1cm)LVDs2.0 (2.5-4.0cm) FS (%) 51.6 %SV60.4 ml LVEF(%)83.3 (>50%) M-Mode DIMENSIONS Left Atrium(MM)4.33 (2.5-4.0cm)Aortic Root3.87 (2.2-3.7cm) Aortic Valve AoV Peak Scooby.275.8cm/sAoV VTI58.4cm AO Peak GR.30.4mmHgLVOT Peak Scooby.89.6cm/s AO Mean GR.20mmHgAVA (VMAX)1.18cm2 IVY (VTI)1.79vs4FV P 1/2 Ikkh989we Mitral Valve MV E Csdmkmlt79.4cm/sMV DECEL KVNG291vj MV A Wbpitcee76.9cm/sE/A Ratio1.0 MV A Naoehyjg454yr Pulmonary Valve PV Peak Nbwaxpqq747.5cm/s LEFT VENTRICLE The left ventricle is normal size. There is mild concentric left ventricular hypertrophy. The left ve ntricular systolic function is normal and the ejection fraction is within normal range. EF 55% There is normal LV segmental wall motion. Transmitral Doppler flow pattern is Grade II-pseudonormal filling dynamics. RIGHT VENTRICLE The right ventricle is mildly dilated. There is normal right ventricular wall thickness. The right ve ntricular systolic function is normal. ATRIA The left atrium is mildly dilated. The right atrium is mildly dilated. The interatrial septum is inta ct with no evidence for an atrial septal defect or patent foramen ovale as noted on 2-D or Doppler im aging. AORTIC VALVE The aortic valve is severly calcified. The aortic valve is trileaflet. Doppler and Color Flow reveale d trace aortic regurgitation. There is at least moderate valvular aortic stenosis. Calculated aortic valve area is 1.2 cm2 with maximum pressure gradient of 30 mmHg and mean pressure gradient of 20 mmHg . MITRAL VALVE The mitral valve is normal in structure and function. There is no evidence of mitral valve prolapse. There is no mitral valve stenosis. Doppler and Color-flow revealed trace mitral regurgitation. TRICUSPID VALVE The tricuspid valve is normal in structure and function. Doppler and Color Flow revealed no tricuspid valve regurgitation noted. There is no tricuspid valve prolapse or vegetation. There is no tricuspid valve stenosis. PULMONIC VALVE Pulmonic valve not well visualized. GREAT VESSELS The aortic root is mildly enlarged. The ascending aorta is Mildly dilated. The IVC is normal in size and collapses >50% with inspiration. PERICARDIAL EFFUSION There is no evidence of significant pericardial effusion. Critical Notification Critical Value: No <Conclusion> The left ventricular systolic function is normal and the ejection fraction is within normal range. EF 55% There is normal LV segmental wall motion. The aortic valve is severly calcified. The aortic valve is trileaflet. There is at least moderate valvular aortic stenosis. Calculated aortic valve area is 1.2 cm2 with ma ximum pressure gradient of 30 mmHg and mean pressure gradient of 20 mmHg. Signed by : Mahendra Woods, Electronically Approved : 09/01/2018 10:13:30
== END | disposition home or self-care (01) ==
LOC: ECHO 08:55
PROVIDERS: ATTEND Internal Medicine Cardiovascular Disease
DX: Z01.818 Encounter for other preprocedural examination (principal)
CPT/HCPCS: 93306

== ENCOUNTER → 2018-11-10 | Outpatient (CLI) | payer MEDICARE, OTHER ==
[~2018-11-10] MED LIST changes: +GADOBUTROL 10 MMOL/10 ML VIAL IV ONE
--- NOTE | 2018-11-10 15:44 | KCIC ---
EXAM: Brain MRI with and without contrast. HISTORY: Abnormal head CT. TECHNIQUE: Multiplanar, multisequence magnetic resonance imaging of the brain was performed prior to and following the administration of 12 cc Gadavist intravenous contrast. COMPARISON: None. FINDINGS: There is no restricted diffusion to suggest acute or subacute infarction. There is no mass effect or midline shift. There is moderate ventricular enlargement, slightly greater than expected for the degree of cerebral atrophy. There is nonspecific signal change scattered throughout the cerebral white matter, most commonly due to chronic small vessel disease. There is an oval avidly enhancing predominantly T1 hypointense and heterogeneous T2 hyperintense extra-axial mass within the left prepontine cistern measuring 1.4 cm craniocaudal by 1.1 cm anteroposterior by 1.0 cm transversely. This slightly deforms the left ventral aspect of the dalia without adjacent parenchymal signal abnormality. This is not clearly associated with adjacent dural tails. No additional suspicious enhancing lesion is seen. The orbits are unremarkable. There is moderate left sphenoid sinus mucosal thickening. There are normal flow voids within the cerebral vessels. No calvarial lesion is seen. IMPRESSION: 1. 1.4 cm avidly enhancing extra-axial mass within the left prepontine cistern. This results in slight mass effect on the adjacent dalia without parenchymal signal abnormality. The imaging appearance favors a schwannoma. The possibility of a meningioma is less likely due to the absence of adjacent dural tails. The possibility of dural metastasis is not favored given the absence of adjacent parenchymal signal abnormality. A dedicated cranial nerve protocol MRI may be useful to assess the adjacent left trigeminal nerve complex. 2. Moderate ventricular enlargement. This is greater than expected for the degree of cerebral atrophy. Correlate for possible normal pressure hydrocephalus. 3. Extensive signal change throughout the cerebral white matter, most commonly due to chronic small vessel disease. The possibility of superimposed signal change within the periventricular distribution due to suboptimal flow of CSF in the setting of hydrocephalus is not excluded. Electronically signed by: Mady Hernandez MD (11/10/2018 3:41 PM) [facility]
== END | disposition home or self-care (01) ==
LOC: KCIC MRI 14:04
PROVIDERS: ATTEND Psychiatry & Neurology Neurology
DX: G93.89 Other specified disorders of brain (principal); R22.0 Localized swelling, mass and lump, head
CPT/HCPCS: 70553; A9585

== ENCOUNTER → 2019-04-10 | Outpatient (CLI) | payer MEDICARE, OTHER ==
[~2019-04-10] MED LIST changes: -GADOBUTROL 10 MMOL/10 ML VIAL IV ONE; +GADOTERATE 7.5 MMOL/15ML VIAL. IVP ONE
--- NOTE | 2019-04-10 10:43 | KCIC ---
MRI of the Brain without and with Contrast 04/10/2019 Clinical History: History of extra-axial mass in the left pontine cistern. Worsening unsteady gait. Technique: Unenhanced T1-weighted sagittal and axial and FLAIR, T2-weighted, gradient echo and diffusion-weighted axial images of the brain were obtained. After the intravenous administration of 24 cc of Dotarem, enhanced T1-weighted axial, sagittal and coronal images of the brain were obtained. Findings: Comparison study is dated 11/10/2018. There is generalized parenchymal atrophy. Patchy, confluent and multiple focal areas of abnormally increased signal intensity are seen within the periventricular and subcortical white matter of both cerebral hemispheres on the FLAIR and T2-weighted images consistent with areas of fairly extensive small vessel ischemic disease. An old area of infarction is seen involving the right posterior temporal lobe. This is new since the previous study. This measures 2.5 cm in size. A somewhat oval-shaped area of restricted diffusion is seen extending from the superior left basal ganglia region to involve the periventricular white matter of the left frontotemporal lobe. This measures 2.6 cm in greatest diameter. It is consistent with an area of acute lacunar ischemia/infarction. There is mild surrounding edema and associated mass effect. No midline shift is noted. A homogeneously enhancing extra-axial mass is seen anterior to the left aspect of the dalia which measures 1.5 x 1.2 x 1.0 cm in craniocaudal, transverse and AP dimensions. It is unchanged when compared to the previous examination. Is consistent with a meningioma/schwannoma. There is no significant mass effect. No additional area of abnormal contrast enhancement is seen. No extra-axial fluid collection is noted. Mild mucosal thickening is seen scattered throughout the paranasal sinuses. Normal flow voids are seen within the major vascular structures surrounding the brain parenchyma. Impression: 1. Stable MRI appearance of the 1.5 cm enhancing extra-axial mass anterior to the left aspect of the dalia consistent with a meningioma/schwannoma. There is no significant mass effect. 2. An old area of infarction is seen involving the right posterior temporal lobe which measures 2.5 cm in size. This is new since the study of 11/10/2018. 3. Acute area of ischemia/infarction is seen involving left basal ganglia region extending to involve the periventricular white matter of the left frontotemporal lobe. There is mild surrounding edema and associated mass effect. These findings were discussed with Regina Jean-Baptiste's nurse. Electronically signed by: Kimo Ross MD (04/10/2019 10:40 AM) [email or web address]
== END | disposition home or self-care (01) ==
LOC: KCIC MRI 08:39
PROVIDERS: ATTEND Neurological Surgery
DX: I67.82 Cerebral ischemia (principal); G31.89 Other specified degenerative diseases of nervous system; G93.89 Other specified disorders of brain; M54.42 Lumbago with sciatica, left side; M54.41 Lumbago with sciatica, right side
CPT/HCPCS: 70553; A9575

== ENCOUNTER → 2020-02-12 | Outpatient (CLI) | payer MEDICARE, OTHER ==
[~2020-02-12] MED LIST changes: -GADOTERATE 7.5 MMOL/15ML VIAL. IVP ONE; -GLIM4TAB2 PO; +GLIM4TAB8 PO; +LISI1TAB19 PO; -LISI1TAB5 PO
--- NOTE | 2020-02-12 11:39 | CARD ---
MR#: [id number] Date of Study: 02/12/2020 Ordering Physician: KIAH ADAIR, Referring Physician: KIAH ADAIR, Tech: Vee Guzman APPROVED REPORT EXAM: Two-dimensional and M-mode echocardiogram with Doppler and color Doppler. Other Information Quality : AverageHR: 63bpm INDICATION Aortic Valve Disease Aortic Stenosis RISK FACTORS Hypertension Hyperlipidemia Diabetes 2D DIMENSIONS Left Atrium(2D)4.5 (1.6-4.0cm)IVSd1.3 (0.7-1.1cm) Aortic Root(2D)3.2 (2.0-3.7cm)LVDd4.5 (3.9-5.9cm) LVOT Diameter2.2 (1.8-2.4cm)PWd1.1 (0.7-1.1cm) LVDs3.0 (2.5-4.0cm)FS (%) 34.8 % SV60.8 mlLVEF(%)64.1 (>50%) Aortic Valve AoV Peak Scooby.243.0cm/sAoV VTI59.3cm AO Peak GR.23.6mmHgLVOT Peak Scooby.98.1cm/s LVOT VTI 23.82cmAO Mean GR.17mmHg IVY (VMAX)1.63rf4BNR (VTI)1.49cm2 AI P 1/2 Adzs078xr Mitral Valve MV E Memizzsd16.6cm/sMV DECEL GKOS431bz MV A Pcpgtsno63.3cm/sMV E Mean Gr.1mmHg MV TUA78ycN/A Ratio1.2 MVA (PHT)3.21cm2 TDI E/Lateral E'9.8E/Medial E'10.5 Pulmonary Valve PV Peak Jgffinjy616.2cm/sPV Peak Grad.4mmHg Tricuspid Valve TR P. Ojclgjns105uo/sRAP AJZLYQGV7nmHv TR Peak Gr.13nmEdAQRF50nkPf Pulmonary Vein S1 Ydurljsr44.2cm/sD2 Snznxqhv34.2cm/s PVa winaiwsk915cvkf LEFT VENTRICLE The left ventricle is normal size. There is mild concentric left ventricular hypertrophy. The left ve ntricular systolic function is normal. The Ejection Fraction is 55-60%. There is normal LV segmental wall motion. Transmitral Doppler flow pattern is Grade II-pseudonormal filling dynamics. RIGHT VENTRICLE The right ventricle is normal size. There is normal right ventricular wall thickness. The right ventr icular systolic function is normal. ATRIA The left atrium is borderline dilated. The right atrium size is normal. The interatrial septum is int act with no evidence for an atrial septal defect or patent foramen ovale as noted on 2-D or Doppler i maging. AORTIC VALVE The aortic valve is calcified but opens well. Doppler and Color Flow revealed mild aortic regurgitati on. Calculated aortic valve area is 1.46 cm2 with maximum pressure gradient of 32 mmHg and mean press ure gradient of 20 mmHg. Doppler and color-flow analysis revealed mild aortic stenosis. MITRAL VALVE The mitral valve is normal in structure and function. There is no evidence of mitral valve prolapse. There is no mitral valve stenosis. Doppler and Color Flow revealed no mitral valve regurgitation note d. TRICUSPID VALVE The tricuspid valve is normal in structure and function. Doppler and Color Flow revealed trace tricus pid regurgitation with an estimated PAP of 26 mmHg. There is no tricuspid valve stenosis. PULMONIC VALVE The pulmonic valve is not well visualized. Doppler and Color Flow revealed no pulmonic valvular regur gitation. GREAT VESSELS The aortic root is normal in size. The IVC is normal in size and collapses >50% with inspiration. PERICARDIAL EFFUSION There is no evidence of significant pericardial effusion. Critical Notification Critical Value: No <Conclusion> The left ventricular systolic function is normal. The Ejection Fraction is 55-60%. There is normal LV segmental wall motion. Transmitral Doppler flow pattern is Grade II-pseudonormal filling dynamics. Mild aortic stenosis. Mild aortic regurgitation. Trace tricuspid regurgitation with an estimated PAP of 26 mmHg. There is no evidence of significant pericardial effusion. Signed by : Kiah Adair, Electronically Approved : 02/12/2020 11:39:18
== END | disposition home or self-care (01) ==
LOC: ECHO 09:05
PROVIDERS: ATTEND Internal Medicine Cardiovascular Disease
DX: I35.2 Nonrheumatic aortic (valve) stenosis with insufficiency (principal); I51.7 Cardiomegaly; I10 Essential (primary) hypertension; E78.5 Hyperlipidemia, unspecified; E11.8 Type 2 diabetes mellitus with unspecified complications
CPT/HCPCS: 93306

== ENCOUNTER → 2021-02-19 | Outpatient (CLI) | payer MEDICARE, OTHER ==
[~2021-02-19] MED LIST changes: -LISI-334 PO; -LISI1TAB19 PO; +LISI1TAB37 PO; +LISI20TA18 PO; +REGADENOSON 0.4 MG/5 ML DISP.SYRIN. IV ONE
--- NOTE | 2021-02-19 19:59 | CARD ---
MR#: [id number] Date of Study: 02/19/2021 Ordering Physician: KIAH JOHNSON, Referring Physician: KIAH JOHNSON, Tech: Vee Guzman, [facility] APPROVED REPORT EXAM: Two-dimensional and M-mode echocardiogram with Doppler and color Doppler. Other Information Quality : AverageHR: 86bpm Technically limited study due to body habitus. INDICATION Aortic Valve Disease RISK FACTORS Diabetes 2D DIMENSIONS Left Atrium(2D)4.6 (1.6-4.0cm)IVSd1.0 (0.7-1.1cm) Aortic Root(2D)3.1 (2.0-3.7cm)LVDd5.4 (3.9-5.9cm) LVOT Diameter2.1 (1.8-2.4cm)PWd1.2 (0.7-1.1cm) LVDs3.7 (2.5-4.0cm)FS (%) 32.0 % SV84.2 mlLVEF(%)59.7 (>50%) Aortic Valve AoV Peak Scooby.313.3cm/sAoV VTI64.6cm AO Peak GR.39.3mmHgLVOT Peak Scooby.95.1cm/s LVOT VTI 22.75cmAO Mean GR.23mmHg IVY (VMAX)0.26vk0GGP (VTI)1.19cm2 AI P 1/2 Pebl256ea Mitral Valve MV E Jjluudpa45.4cm/sMV DECEL XZMD336za MV A Nubjpivs17.8cm/sMV GDI512sq E/A Ratio1.1MVA (PHT)2.10cm2 TDI E/Lateral E'7.8E/Medial E'11.7 Pulmonary Valve PV Peak Ccesakfz22.0cm/sPV Peak Grad.3mmHg Tricuspid Valve TR P. Fzybvjnx396tv/sRAP OYUYIVNY8vrGd TR Peak Gr.87gyPlQLKU81kmPz LEFT VENTRICLE The left ventricle is normal size. There is mild to moderate concentric left ventricular hypertrophy. The left ventricular systolic function is normal and the ejection fraction is within normal range. T he Ejection Fraction is 50-55%. There is normal LV segmental wall motion. Transmitral Doppler flow pa ttern is Grade II-pseudonormal filling dynamics. RIGHT VENTRICLE The right ventricle is normal size. There is normal right ventricular wall thickness. The right ventr icular systolic function is normal. ATRIA The left atrium is borderline dilated. The right atrium size is normal. The interatrial septum is int act with no evidence for an atrial septal defect or patent foramen ovale as noted on 2-D or Doppler i maging. AORTIC VALVE The aortic valve is calcified and displays decreased opening. Doppler and Color Flow revealed trace t o mild aortic regurgitation. Calculated aortic valve area is 1.36 cm2 with maximum pressure gradient of 55 mmHg and mean pressure gradient of 28 mmHg. There is moderate valvular aortic stenosis. DI 0.27 MITRAL VALVE The mitral valve is normal in structure and function. There is no evidence of mitral valve prolapse. There is no mitral valve stenosis. Doppler and Color-flow revealed trace mitral regurgitation. TRICUSPID VALVE The tricuspid valve is normal in structure and function. Doppler and Color Flow revealed trace tricus pid regurgitation with an estimated PAP of 24 mmHg. There is no tricuspid valve stenosis. PULMONIC VALVE The pulmonic valve is not well visualized. Doppler and Color Flow revealed no pulmonic valvular regur gitation. There is no pulmonic valvular stenosis. GREAT VESSELS The aortic root is normal in size. The IVC is normal in size and collapses >50% with inspiration. PERICARDIAL EFFUSION There is no evidence of significant pericardial effusion. Critical Notification Critical Value: No <Conclusion> The left ventricular systolic function is normal and the ejection fraction is within normal range. Th e Ejection Fraction is 50-55%. There is normal LV segmental wall motion. Calculated aortic valve area is 1.36 cm2 with maximum pressure gradient of 55 mmHg and mean pressure gradient of 28 mmHg. There is moderate valvular aortic stenosis. DI 0.27 Signed by : Mahendra Woods, Electronically Approved : 02/19/2021 19:59:12
--- NOTE | 2021-02-20 11:43 | RAD ---
MR#: [id number] Date of Study: 02/19/2021 Ordering Physician: KIAH JOHNSON, Referring Physician: EDDIE AN Tech: FRANCES Silva APPROVED REPORT Test Type: Pharmacological Stress Nurse/Tech: Shelby Richards R.N. Test Indications: aortic stenosis Cardiac History: htn, dm Medications: see attached list Medical History: see ehr Resting ECG: sr with PACs and PVCs Resting Heart Rate: 74 bpm Resting Blood Pressure: 122/70mmHg Pretest Chest Pain: No chest pain Nurse/Tech Notes lungs cta, heart tones irregular Consent: The procedure was explained to the patient in lay terms. Informed consent was witnessed. Joel eout was entered into foc[employer]. History and Stress Test performed by RT Chana (Uday) (N) Pharm. Details Pharmacologic stress testing was performed using 0.4mg per 5ml of regadenoson given intravenously ove r 7-10 seconds. Stress Symptoms No chest pain or symptoms. POST EXERCISE Reason for Termination: Infusion complete Target HR: No Max HR: 97 bpm Max Blood Pressure: 157/80mmHg Chest Pain: No. Arrhythmia: Yes. Pt had freq PACs and PVCs throughout including pre stress test. ST Change: No. INTERPRETATION Stress EKG Conclusion: No evidence of stress induced EKG changes. Imaging Protocol IMAGE PROTOCOL: Rest Tc-99m/stress Tc-99m 1 day Rest: Stress: Viability: Radiopharm.Tc99m LgedygamxJz03a Sestamibi Ytsk92gMy 32mCi Duration 15min. 10min. Img Date 02/19/2021 02/19/2021 Inj-Img Uizw11ahh. 60min. Rest Admin Site:IV - Left AntecubitalAdministrator:RT Chana (R)(N) Stress Admin Site: IV - Left AntecubitalAdministrator: RT Chana (R)(N) STRESS DATA End Diast. Vol.116.0mlAv. Heart Rate72.0bpm End Syst. Vol.31.0mlCO Index BSA0.0L/min Myocardial Vonr198.0gEject. Oasulchw19.0% Stress Rates Pk. Fill Rate2.63EDV/secLVtime Pk. Fill 248.97msec Pk. Empty Rate3.22ESV/secLVtime Pk. Htnjz674.81msec 1/3 Pk. Fill1.51EDV/sec Stress Scores Regional WT0.00Summed WT1.00 Regional WM0.00Summed WM0.00 The rest and stress images show normal perfusion, normal contraction and thickening. LV Perf. Quant 17 Seg. SSS1.00 17 Seg. SRS3.00 17 Seg. SDS1.00 Stress Defect Extent (% LAD)0.00Rest Defect Extent (% LAD)0.00Rev. Defect Extent (% LAD)0.00 Stress Defect Extent (% LCX) 0.00Rest Defect Extent (% LCX)16.30Rev. Defect Extent (% LCX)0.00 Stress Defect Extent (% RCA)0.00Rest Defect Extent (% RCA)4.40Rev. Defect Extent (% RCA)0.00 Stress Defect Extent (% MICHELLE)0.00Rest Defect Extent (% MICHELLE)5.20Rev. Defect Extent (% MICHELLE)0.00 Other Information Quality:Average Risk Assessment: Low Risk Conclusion 1. No evidence of EKG changes with stress testing. 2. Normal perfusion at stress/rest. 3. Low risk study. 4. EF > 60%. Signed by : Mahendra Woods, Electronically Approved : 02/20/2021 11:42:45
== END ==
LOC: NM 08:33
PROVIDERS: ATTEND Internal Medicine Cardiovascular Disease
DX: I06.0 Rheumatic aortic stenosis (principal); I11.9 Hypertensive heart disease without heart failure; E11.9 Type 2 diabetes mellitus without complications; I49.3 Ventricular premature depolarization; I49.1 Atrial premature depolarization
CPT/HCPCS: 78452; 93017; 93306; A9500; J2785

== ENCOUNTER → 2021-03-13 | Outpatient (CLI) | payer MEDICARE, OTHER ==
[~2021-03-13] MED LIST changes: -REGADENOSON 0.4 MG/5 ML DISP.SYRIN. IV ONE
--- NOTE | 2021-03-17 17:18 | RAD ---
MR#: [id number] Date of Study: 03/13/2021 Ordering Physician: KIAH JOHNSON, Referring Physician: KIAH JOHNSON, Tech: Ti Moore MBA, RDMS, RVT, RDCS, RTR APPROVED REPORT Patient Location : OUT-PATIENT Indications Lower Extremity Edema : Bilateral Findings The right great saphenous vein measures 6.5 mm and the left great saphenous vein measures 4 mm. The bilateral greater and lesser saphenous veins do not show any evidence of reflux. Critical Notification Critical Value: No <Conclusion> 1. Negative for reflux in the bilateral greater and lesser saphenous veins Signed by : Mahendra Woods, Electronically Approved : 03/17/2021 17:18:33
== END ==
LOC: US 08:46
PROVIDERS: ATTEND Internal Medicine Cardiovascular Disease
DX: R60.0 Localized edema (principal)
CPT/HCPCS: 93970